=== PATIENT | female | born 1950 | race Caucasian/White ===

== ENCOUNTER 2021-06-02 11:43 | Outpatient (CLI) | payer MEDICARE, SELFPAY ==
[2021-06-02 12:29] LABS: Hematocrit 43.9 % (37.0-47.0); Hemoglobin 14.2 g/dL (12.0-15.0); Mean Corpuscular HGB Conc 32.3 g/dl (32-36); Mean Corpuscular Hemoglobin 29.3 pg (26-34); Mean Corpuscular Volume 90.5 fl (80-100); Mean Platelet Volume 11.6 fl (7.4-10.4); Platelet Count Result 234 k/mm3 (150-375); Red Blood Count 4.85 M/mm3 (4.2-5.4); Red Cell Distribution Width 12.2 % (11.5-14.5); White Blood Count 6.9 K/mm3 (4.5-10.0)
[2021-06-02 12:40] LABS: CRP < 0.5 mg/dL (<1.0)
[2021-06-02 12:44] LABS: Complement C3 144 mg/dL (88-165)
[2021-06-02 13:20] LABS: Rheumatoid Factor < 8.6 IU/ML (<12)
[2021-06-02 15:48] LABS: Erythrocyte Sedimentation Rate 11 mm/hr (0-20)
[2021-06-04 20:00] LABS: SM Antibody <1.0; SM/RNP Antibody <1.0; SS-A <1.0; SS-B <1.0
[2021-06-05 20:42] LABS: Lupus dRVVT 1:1 Mix Interpreta Not Indicated; Lupus dRVVT Screen 28 sec (<=45); PTT-LA Screen 28 sec (<=40)
[2021-06-06 00:34] LABS: Anti Cyclic Citrullinated Pept <16 Units (<20)
== END 2021-06-02 11:44 | disposition home or self-care (01) ==
LOC: ANHLAB 11:53
PROVIDERS: PCP Family Medicine; Visit Provider Internal Medicine
DX: M06.9 Rheumatoid arthritis, unspecified (principal); M19.90 Unspecified osteoarthritis, unspecified site; R76.8 Other specified abnormal immunological findings in serum
CPT/HCPCS: 36415; 85027; 85613; 85652; 85730; 86038; 86140; 86160; 86200; 86225; 86235; 86430

== ENCOUNTER 2021-06-11 07:50 | Outpatient (CLI) | payer MEDICARE, SELFPAY ==
--- NOTE | ~2021-06-11 | MR_ITS ---
EXAMINATION: MR hand LT wo/w con, MR hand RT wo/w con DATE: 06/11/2021 10:20 INDICATION: Rheumatoid arthritis without rheumatoid factor TECHNIQUE: 1. Magnetic resonance imaging (MRI) of the right hand was performed without and with 10 mL Multihance intravenous contrast to include the metacarpals and digits. Sequences included axial, sagittal and c oronal T1-weighted FSE and T2-weighted FS FSE, axial T1-weighted FS FSE and postcontrast axial and co maicol T1-weighted FS FSE. 2. MRI of the left hand was performed without and with 10 mL Multihance intravenous contrast to inclu de the metacarpals and digits. Study utilized same contrast bolus is clearly contralateral right hand . Sequences included axial, sagittal and coronal T1-weighted FSE and T2-weighted FS FSE, axial T1-ruiz ghted FS FSE and postcontrast axial and coronal T1-weighted FS FSE. COMPARISON: None FINDINGS: Bone alignment is normal at both hands with normal marrow signal throughout. No reactive edema or pat hologic marrow replacing process. 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 There is a T2 hyperintense enh ancing erosion at the ulnar side of the right triquetrum and at the ulnar base of the left second met acarpal. Additional possible tiny T2 hyperintense and enhancing erosion at the palmar aspect of the a rticular surface of the distal head of the right third metacarpal. T2 hyperintense likely degenerativ e cystic versus chronic erosion without associated enhancement at the head of the right first metacar pal. No joint effusions or enhancing tenosynovitis. The visualized portion of the flexor and extensor tendons are normal. The collateral ligament complex at the bilateral metacarpophalangeal and interph alangeal joints are normal. IMPRESSION: 1. Small enhancing erosions at the right triquetrum, at the base of the left second metacarpal and at the head of the right third metacarpal which could be related to reported history of rheumatoid arth ritis. Reviewed, dictated and finalized at location A. [employer] IMPRESSION: 1. Small enhancing erosions at the right triquetrum, at the base of the left se cond metacarpal and at the head of the right third metacarpal which could be re lated to reported history of rheumatoid arthritis.
[2021-06-11 08:53] LABS: Estimated Glomerular Filt Rate > 60
== END 2021-06-11 07:51 | disposition home or self-care (01) ==
PROVIDERS: PCP Family Medicine; Visit Provider Internal Medicine
DX: M06.00 Rheumatoid arthritis without rheumatoid factor, unspecified site (principal)
CPT/HCPCS: 73220; A9577

== ENCOUNTER 2022-03-19 09:31 | Outpatient (CLI) | payer MEDICARE, SELFPAY ==
[2022-03-19 10:10] LABS: Hematocrit 44.6 % (37.0-47.0); Hemoglobin 14.9 g/dL (12.0-15.0); Mean Corpuscular HGB Conc 33.4 g/dl (32-36); Mean Corpuscular Hemoglobin 28.7 pg (26-34); Mean Corpuscular Volume 85.9 fl (80-100); Mean Platelet Volume 11.6 fl (7.4-10.4); Platelet Count Result 200 k/mm3 (150-375); Red Blood Count 5.19 M/mm3 (4.2-5.4); Red Cell Distribution Width 13.2 % (11.5-14.5); White Blood Count 6.5 K/mm3 (4.5-10.0)
[2022-03-19 10:24] LABS: Rheumatoid Factor < 8.6 IU/ML (<12)
[2022-03-23 13:16] LABS: Angiotensin Converting Enzyme 48.3 U/L (9-67)
[2022-03-24 18:09] LABS: Anti Cyclic Citrullinated Pept <16 Units (<20)
== END 2022-03-19 09:32 | disposition home or self-care (01) ==
PROVIDERS: PCP Family Medicine; Visit Provider Internal Medicine
DX: R76.8 Other specified abnormal immunological findings in serum (principal); M06.00 Rheumatoid arthritis without rheumatoid factor, unspecified site; M19.90 Unspecified osteoarthritis, unspecified site; M06.9 Rheumatoid arthritis, unspecified
CPT/HCPCS: 36415; 82164; 84550; 85027; 86038; 86200; 86430

== ENCOUNTER 2022-05-25 12:38 | Outpatient (CLI) | payer MEDICARE, SELFPAY ==
[2022-05-25 13:34] LABS: Hematocrit 43.6 % (37.0-47.0); Hemoglobin 14.5 g/dL (12.0-15.0); Mean Corpuscular HGB Conc 33.3 g/dl (32-36); Mean Corpuscular Hemoglobin 29.2 pg (26-34); Mean Corpuscular Volume 87.7 fl (80-100); Mean Platelet Volume 11.9 fl (7.4-10.4); Platelet Count Result 218 k/mm3 (150-375); Red Blood Count 4.97 M/mm3 (4.2-5.4); Red Cell Distribution Width 13.2 % (11.5-14.5); White Blood Count 7.3 K/mm3 (4.5-10.0)
[2022-05-25 13:48] LABS: Alanine Aminotransferase 20 U/L (6-35); Albumin Level 4.1 g/dL (3.5-5.1); Alkaline Phosphatase 93 U/L (38-126); Anion Gap 7 mmol/L (8-16); Aspartate Amino Transferase 34 U/L (14-36); Bilirubin,Total 1.2 mg/dL (0.2-1.3); Blood Urea Nitrogen 10 mg/dL (7-17); CRP 0.6 mg/dL (<1.0); Calcium 9.1 mg/dL (8.4-10.2); Carbon Dioxide 27 mmol/L (22-30); Chloride 107 mmol/L (98-107); Estimated Glomerular Filt Rate > 60; Glucose 100 mg/dL (65-110); Sodium 141 mmol/L (137-145)
[2022-05-25 14:09] LABS: Appearance Urine Slightly Cloudy (Clear); Bilirubin Urine 1+ (Negative); Blood Urine Trace-lysed (Negative); Color Urine Yellow (Yellow); Glucose Urine UA Negative (Negative); Ketones Urine Negative (Negative); Leukocyte Esterase Ur 1+ LEU/UL (Negative); Nitrate Urine Negative (Negative); Protein Urine 2+ mg/dL (Negative); Specific Grav Ur >= 1.030 (1.001-1.035); Urobilinogen Urine 0.2 mg/dL (<2.0); pH Urine 5.5 (5.0-9.0)
[2022-05-25 14:14] LABS: Bacteria Urine Trace /hpf; Mucus Urine Heavy /lpf; Squamous Epithelial Cell Urine Many /hpf (Few); WBC Urine 31-50 /hpf
[2022-05-25 14:17] LABS: Add Urine Microscopic? YES
[2022-05-25 14:55] LABS: Erythrocyte Sedimentation Rate 13 mm/hr (0-20)
== END 2022-05-25 12:39 | disposition home or self-care (01) ==
LOC: ANHLAB 12:42
PROVIDERS: PCP Family Medicine; Visit Provider Internal Medicine
DX: E83.119 Hemochromatosis, unspecified (principal); M06.09 Rheumatoid arthritis without rheumatoid factor, multiple sites; M19.90 Unspecified osteoarthritis, unspecified site; M81.0 Age-related osteoporosis without current pathological fracture
CPT/HCPCS: 36415; 80053; 81001; 85027; 85652; 86140; 87086; 87088

== ENCOUNTER 2022-09-14 10:30 | Outpatient (CLI) | payer MEDICARE, SELFPAY ==
[2022-09-14 12:05] LABS: Hepatitis B Surface Antigen Negative (Negative)
[2022-09-14 12:23] LABS: Hepatitis B Surface Anti Res Negative; Hepatitis C Virus Antibody Negative (Negative)
[2022-09-17 14:18] LABS: NIL 0.03 IU/mL; Quantiferon TB Plus, 1T NEGATIVE (NEGATIVE); TB2-NIL 0.01 IU/mL
== END 2022-09-14 10:31 | disposition home or self-care (01) ==
PROVIDERS: PCP Family Medicine; Visit Provider Internal Medicine
DX: M06.09 Rheumatoid arthritis without rheumatoid factor, multiple sites (principal)
CPT/HCPCS: 36415; 86480; 86706; 86803; 87340